=== PATIENT | female | born 1970 | race American Indian/Alaskan Native ===

== ENCOUNTER 2019-03-23 02:19 | Emergency (ER) | payer OTHER ==
[2019-03-23 02:38] VITALS: TEMP 98.1; O2SAT 98
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
[2019-03-23 03:42] VITALS: BP 130/80; PULSE 70; RESP 14
== END 2019-03-23 03:42 | disposition home or self-care (01) ==
LOC: C.ER 02:19
DX: S16.1XXA Strain of muscle, fascia and tendon at neck level, initial encounter (principal); S80.12XA Contusion of left lower leg, initial encounter; V49.59XA Passenger injured in collision with other motor vehicles in traffic accident, initial encounter; Y92.410 Unspecified street and highway as the place of occurrence of the external cause